=== PATIENT | male | born 1970 | race Native Hawaiian/Other Pacific Islander ===

== ENCOUNTER 2017-06-03 08:27 | Outpatient (CLI) | payer OTHER ==
[2017-06-03 09:00] LABS: PLATELET COUNT 239 K/uL (142-355)
[2017-06-03 10:26] LABS: POTASSIUM 4.7 mmol/L (3.6-5.2)
== END 2017-06-03 21:20 | disposition home or self-care (01) ==
LOC: LABW 08:27
PROVIDERS: Internal Medicine
DX: E66.8 Other obesity (principal); N41.8 Other inflammatory diseases of prostate; E78.00 Pure hypercholesterolemia, unspecified
CPT/HCPCS: 36415; 80053; 80061; 81000; 83036; 84153; 84443; 85027

== ENCOUNTER 2017-10-29 19:47 | Emergency (ER) | payer OTHER ==
[~2017-10-29] VITALS: Ht 175.3 cm; Wt 127.0 kg
[2017-10-29 20:23] VITALS: BP 159/93; TEMP 98.4
== END 2017-10-29 20:24 | disposition home or self-care (01) ==
LOC: ED 19:47
DX: S30.860A Insect bite (nonvenomous) of lower back and pelvis, initial encounter (principal); W57.XXXA Bitten or stung by nonvenomous insect and other nonvenomous arthropods, initial encounter; Y93.89 Activity, other specified; Y92.89 Other specified places as the place of occurrence of the external cause; R21 Rash and other nonspecific skin eruption
CPT/HCPCS: 99282

== ENCOUNTER 2020-03-24 10:55 | Outpatient (CLI) | payer OTHER | END 2020-03-24 21:56 | disposition home or self-care (01) | LOC: LAB 10:55 | PROVIDERS: ATTEND Family Medicine | DX: Z20.828 Contact with and (suspected) exposure to other viral communicable diseases (principal) | CPT/HCPCS: 87635; G2023; U0003 ==

== ENCOUNTER 2020-07-25 09:48 | Outpatient (CLI) | payer OTHER | END 2020-07-25 21:48 | disposition home or self-care (01) | LOC: LAB 09:48 | PROVIDERS: ATTEND Family Medicine | DX: U07.1 COVID-19 (principal); Z20.822 Contact with and (suspected) exposure to COVID-19 | CPT/HCPCS: 87635; G2023; U0003 ==

== ENCOUNTER 2021-05-26 16:02 | Outpatient (CLI) | payer OTHER | END 2021-05-26 19:07 | disposition home or self-care (01) | LOC: RAD 16:02 | PROVIDERS: ATTEND Family Medicine | DX: M54.9 Dorsalgia, unspecified (principal) ==

== ENCOUNTER 2021-05-31 06:54 | Outpatient (CLI) | payer OTHER ==
[2021-05-31 07:27] LABS: PLATELET COUNT 209 K/uL (142-355)
[2021-05-31 07:47] LABS: POTASSIUM 3.8 mmol/L (3.6-5.2)
== END 2021-05-31 19:27 | disposition home or self-care (01) ==
LOC: LABW 06:54
PROVIDERS: ATTEND Family Medicine
DX: M54.9 Dorsalgia, unspecified (principal); R51.9 Headache, unspecified; R42 Dizziness and giddiness; E66.01 Morbid (severe) obesity due to excess calories; E78.5 Hyperlipidemia, unspecified
CPT/HCPCS: 36415; 80053; 80061; 81000; 84439; 84443; 85027

== ENCOUNTER 2022-06-12 06:54 | Outpatient (CLI) | payer OTHER ==
[2022-06-12 07:32] LABS: PLATELET COUNT 227 K/uL (142-355)
[2022-06-12 07:44] LABS: POTASSIUM 4.2 mmol/L (3.6-5.2)
== END 2022-06-12 19:37 | disposition home or self-care (01) ==
LOC: LAB 06:54
PROVIDERS: ATTEND Family Medicine
DX: L40.9 Psoriasis, unspecified (principal); M54.89 Other dorsalgia; R51.9 Headache, unspecified; R42 Dizziness and giddiness; E78.49 Other hyperlipidemia; E66.01 Morbid (severe) obesity due to excess calories; R35.1 Nocturia; E55.9 Vitamin D deficiency, unspecified
CPT/HCPCS: 36415; 80053; 80061; 81002; 82306; 84153; 84439; 84443; 84550; 85027